=== PATIENT | female | born 1990 | race Caucasian/White ===

== ENCOUNTER → 2020-07-11 | Outpatient (CLI) | payer OTHER, SELFPAY ==
[2020-07-11 13:59] VITALS: BMI 27.1
[2020-07-17 09:59] LABS: HPV Reflexed? NOT INDICATED
== END | disposition home or self-care (01) ==
LOC: LABSPEC 16:16
PROVIDERS: Referring Provider Nurse Practitioner Women's Health; Visit Provider Nurse Practitioner Women's Health
DX: Z12.4 Encounter for screening for malignant neoplasm of cervix (principal)
CPT/HCPCS: 88175; G0145

== ENCOUNTER 2022-06-18 08:25 | Day surgery (SDC) | payer OTHER, BC, SELFPAY ==
--- NOTE | 2022-06-17 16:04 | HP.PCM_ITS ---
History and Physical Date of Admission: 06/18/22 [facility] [address] [place] [address] OFFICE VISIT Date of Service:? 05/10/22 MR#: [id number] Acct: [id number] Name:SHEEBA BLACKWOOD Rep #: [id number] : 1990 ? ? Provider: Dr. Tiffany Su, DO Age/Sex:? 31/F ? ? Location: [facility] [place] Status: Signed Intake Vital Signs ? 03/18/2212:24 05/10/2209:04 05/10/2209:07 Height 5 ft 4 in 5 ft 3 in 5 ft 4 in Weight: ? 135 lb 8 oz ? BMI ? 24.0 ? BP ? 118/70 ? 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) Allergies nitrofurantoin [From Macrobid] Allergy (Mild, Verified 05/10/22 09:03) Nausea Medications levonorgestrel 20 mcg/24 hours (7 yrs) 52 mg intrauterine device (Mirena) 1 insert intrauterine ONCE 10/09/17 [History Confirmed 05/10/22] sumatriptan succinate 100 mg tablet 100 mg PO ONCE PRN 07/11/20 [History Confirmed 05/10/22] amitriptyline 50 mg tablet 50 mg PO DAILY 05/10/22 [History Confirmed 05/10/22] topiramate 50 mg tablet (Topamax) 50 mg PO DAILY 05/10/22 [History Confirmed 05/10/22] Is last menstrual period known: Yes Last Menstral Period: 04/21/22 Nurse's Note: wants to discuss sterilization [facility] Medical History? COVID-19 Frequent headaches Family History? Mother Thyroid disorderSister Depression with anxiety Precancerous changes of the cervixGrandmother Arthritis DiabetesBrother HypertensionBrother HypoglycemiaFather Multiple sclerosis CVA (cerebral vascular accident) Social History? Smoking Status:? Never smoker alcohol intake:? current alcohol intake frequency: holidays/special occasions only substance use type:? does not use caffeine:? Yes what type of physical activity do you participate in:? none do you feel safe at home:? Yes additional social history:? [employer] at [employer] Patient works at [employer] Pregancy History ? ? ? 2 ? Elective abortions ? Hx Para ? ? ? 2 ? Spontaneous abortions ? Hx # Term Pregnancies ? Ectopic pregnancies ? Hx # Pregnancies ? Multiple births ? # of living children ? Past Pregnancies Del. Date Name GA/Weeks Outcome Route Bth Weight Infant Gen Labor Lgth Anesthesia Del Locatn Provider FOB 08/04/10 Conrad 41 live - full term 7lbs 6oz Male [address] David Garza 07/14/13 Brigette 40 live - full term 9lbs 2oz Female ? epidural WC ? Greg Delivery Date: 08/04/10? Last Updated by: Jordana Mix ? ? ? Chronic UTIs during Delivery Date: 07/14/13? Last Updated by: Jordana Mix ? ? ? Chronic UTIs, kidney infection. No issues during delivery HPI Encounter for routine gynecological examination Details: SHEEBA BO is a 31 year old who presents for annual exam. Last PAP: 2020 - normal History of abnormal PAP: no Last mammogram: n/a History of abnormal mammogram: n/a Colon cancer screening: n/a Other preventative health care screenings: up to date pt is requesting bilateral salpingectomy. she has a mirena in that is due to come out next year. she is asking to have it removed and replaced at the time of surgery to avoid office replacement due to complications in the past in the office. Female Reproductive History Last Menstral Period: 04/21/22 Cycle Length: 21-35 Bleeding Duration: 5 Questions: metorrhagia: No, sexually active: Yes, dyspareunia: No and PCB: No Menopausal Symptoms: No hot flashes, No night sweats, No weight change, No mood changes, No difficulty concentrating, No sleep problems and No change in libido ROS Const Constitutional: Reports as per HPI; Denies fatigue, increased appetite, poor appetite, night sweats, weight gain or weight loss Cardio Card: Denies chest pain Resp Resp: Denies cough or dyspnea GI GI: Reports as per HPI; Denies abdominal pain, bloating, constipation, nausea or vomiting : Reports as per HPI and other; Denies difficulty voiding, dysuria, hematuria, hot flashes, nipple discharge, pelvic pain, prolapse symptoms, urinary frequency, urinary incontinence, urinary urgency, vaginal discharge, vaginal dryness, vaginal odor or vaginal pruritus Skin Skin/Breast: Denies changing lesions, breast mass, breast pain, breast skin changes or nipple discharge Psych Psych: Denies anxiety, change in libido, depression or difficulty concentrating Exam Const General: cooperative, healthy appearing, comfortable, no acute distress, well developed and well groomed HENMI Head: normal to inspection and normocephalic Ears: hearing grossly normal bilaterally and external ears normal Nose: external nose normal Face and sinus: normal facial exam Neck Neck: normal visual inspection, full ROM and no lymphadenopathy Thyroid: thyroid normal Chest Chest palpation & inspection: normal inspection of the chest Breast inspection: normal inspection of the breasts and normal inspection of the axillae Breast palpation: normal palpation of the breasts, normal palpation of the axillae and no axillary lymphadenopathy Resp Effort & Inspection: normal respiratory effort GI Inspection: normal to inspection and non-distended Palpation: soft, no hepatosplenomegaly and no guarding General: bladder normal to palpation External Female Exam: normal external appearance, normal appearance of the urethra and no lesions Urethra: normal appearance of the urethra and normal palpation Speculum Exam - Vagina: normal appearance of the vagina and normal vaginal discharge Speculum Exam - Cervix: normal appearance of the cervix, no cervical discharge, no lesions and nontender Bimanual Exam- Vagina & Uterus: normal bimanual exam, uterine size normal, bladder normal to palpation, No tender, uterine mobility normal, consistency normal, non-tender and no cervical motion tenderness Bimanual Exam- Adnexa, other: normal adnexae, no masses and non-tender Skin General: no rashes or lesions noted Neuro General: patient alert, moves all extremities and no focal motor deficits Extrem General: normal to inspection and no pedal edema Psych Appearance: grossly normal Mental Status: mental status grossly normal Affect: normal affect Speech and Movement: speech and movement normal Attitude: cooperative Coding Level of Care Code Off vis,est,prev 18-39yrs Diagnoses Encounter for routine gynecological examination? Z01.419 Contraceptive management? Z30.431 ? ? ? Contraceptive encounter type: IUD management ? ? ? IUD management: routine checking Assessment and Plan Assessment and Plan (1) Encounter for routine gynecological examination: ?Plan: Cervical cancer screening: pap up to date Breast cancer screening: plan to start at age 40 STD prevention and contraceptive options including their risks, benefits, and alternatives were reviewed with the patient and she chooses: mirena + tubal ligation? Encouraged maintenance of a healthy weight and active lifestyle and handout given. Calcium/vitamin D recommendations provided. Annual exam handout including recommendations for good health guidelines and basic screening information given.? Problem list up to date, see problem list details for any additional plan information. follow up in one year for annual health maintenance exam or sooner if needed. (2) Contraceptive management: ?Status:?Acute ?Qualifiers: ?Contraceptive encounter type:?IUD management??IUD management:?routine checking? Qualified Code(s):?Z30.431 - Encounter for routine checking of intrauterine contraceptive device ?Plan: After discussing the patient's diagnosis and treatment plan options, patient wishes to proceed with surgical management. plan for laparoscopic bilateral salpingectomy, remval and replacement of IUD. ? I have discussed with the patient the risks, benefits, and alternatives of the procedure which include but are not limited to risks of anesthesia, bleeding, infection, possible damage to bowel, bladder, or surrounding vasculature which could lead to additional surgery to evaluate any complications.? Patient agrees to procedure and wishes to proceed.? ACOG/uptodate references given for additional information regarding procedure.? UPDATE- I have seen the patient and performed any clinically relevant updates to the history and physical exam. Tiffany Su, DO
[2022-06-18 08:56] VITALS: BP 104/76; PULSE 95; RESP 16; TEMP 37.1; O2SAT 100; BMI 23.8
[2022-06-18] MEDS: Lactated Ringers 1,000 ML 125 ML IV ×2 (09:15→10:30)
[2022-06-18 09:26] LABS: Hematocrit 39.3 % (37-47); Hemoglobin 12.9 g/dL (12.0-15.0); Mean Corp Hgb Conc 32.8 g/dL (32-36); Mean Corpuscular Hgb 30.1 pg (27.0-32.0); Mean Corpuscular Volume 91.8 fL (81-99); Mean Platelet Vol. 10.9 fl (6.2-12.0); Platelet Count 298 K/mm3 (150-450); RBC Distribution Width CV 12.6 % (11.6-14.6); RBC Distribution Width SD 42.2 fl (35.1-43.9); Red Blood Count 4.28 M/mm3 (4.2-5.4); White Blood Count 5.7 K/mm3 (4.4-11.0)
[2022-06-18 09:32] LABS: Internal QC Validated? YES +Cl - CLEAR BKGD; Pregnancy, Urine Negative Negative
--- NOTE | 2022-06-18 10:00 | FALS_PTH ---
PATIENT: SHEEBA BO LOC: [facility] [place] U#:[id number] AGE/SX: 31/F ROOM: RE06/18/[address]: Dr. Tiffany Su DO : 1990 BED: DIS: 06/18/2022 SPEC #: [id number] RECD: 06/18/22 11:53 STATUS: NORM MARINANapoleon #: [id number] JAS: 06/18/22 10:[address]: Tiffany Su DEPT: SURGICAL PATHOLOGY RECD BY: Idalmis Manzano ENTERED: 06/18/22 12:35 SP TYPE: FALL TUBES OTHR DR: Duyne Primary Care Phys Tissues: A - Fallopian tube B - OVARIAN CYST C - Fallopian tube Procedures: Surgery Specimen Level II Surgery Specimen Level IV HEADER OPERATION: Laparoscopic salpingectomy, removal and reinsertion of Mirena PRE-OP DIAGNOSIS: CRT exam TISSUE SUBMITTED: A ? Left fallopian tube, B ? Left ovarian nodule, C ? Right fallopian tube MICROSCOPIC DIAGNOSIS A. Left fallopian tube, salpingectomy: Fallopian tube, no pathologic diagnosis. B. Left ovarian nodule, biopsy: Fragments of fibroadipose tissue with focal area of fat necrosis and reactive changes. Negative for malignancy. C. Right fallopian tube, salpingectomy: Fallopian tube, no pathologic diagnosis. SJ:rg 06/19/2022 COMMENT Case has been reviewed in consultation with Dr. Paniagua who concurs with the above diagnosis. IDC:AM MICROSCOPIC DESCRIPTION Slides are reviewed. GROSS DESCRIPTION A - Received in fixative is one container labeled with the patient's name and designated left fallopian tube. The specimen consists of a fallopian tube in two pieces measuring 5.5 cm in length and up to 0.5 cm in diameter. The fimbrial end is identified. Sections reveal unremarkable cut surfaces. Signal System Testing Maintainer sections are submitted in one cassette. B - Received in fixative is one container labeled with the patient's name and designated left-sided ovarian nodule. The specimen consists of multiple pieces of maurice-light yellow soft tissue that in aggregate measure 1.5 x 1 x 0.3 cm. The specimen is totally submitted in one cassette. C - Received in fixative is one container labeled with the patient's name and designated right fallopian tube. The specimen consists of a fallopian tube including fimbrial end measuring 6.5 cm in length and 0.5 cm in diameter. Sections reveal unremarkable cut surfaces. Signal System Testing Maintainer sections are submitted in one cassette. / SJ:rg 06/18/2022 TC:5 CPT: 98103, 88783 x2
[2022-06-18] MEDS: Sugammadex Sodium 200 MG/2 ML VIAL IV (10:39)
--- NOTE | 2022-06-18 10:42 | OP.PCM_ITS ---
Operative Report Date of Procedure: 06/18/22 preoperative diagnosis: desires permanent sterilization, menorrhagia postoperative diagnosis: desires permanent sterilization, menorrhagia surgery: laparoscopic bilateral salpingectomy, placement of Mirena IUD surgeon: Dr. Tiffany Su DO Corporate Representative: trevor Serrano EBL: 5 cc Anesthesia: general endotracheal intubation Complications: none Details of the procedure: Patient was taken in the operating room and was placed under general anesthesia was prepped and draped in normal sterile fashion in the dorsal lithotomy position.? Bladder was drained of clear urine and SCDs were on preoperatively.The mirena IUD was grasped and removed. ? Uterus was sounded and a uterine manipulator was placed after dilating. ? Attention was then paid to the abdominal portion of the procedure and the umbilicus was elevated and injected with Marcaine. A 5mm trocar was inserted into the abdomen under direct visualization using the laparoscope. The abdomen was insufflated with CO2 gas and a left lower quadrant 5 mm port and a mini grasper were placed? suprapubically under direct visualization.? Uterus was well visualized and bilateral fallopian tubes identified and bilateral tubes were elevated and transecting across the mesosalpinx and the attachment to the uterine corpus bilaterally the tubes were removed without complication.? Excellent hemostasis was noted.? Fallopian tubes were removed through the lower port sites without complication.? Liver and upper abdomen were visualized notably within normal limits and no other gross abnormalities were seen in the abdomen.? All instruments removed from the abdomen after gas was desufflated.? Port sites were closed with 3-0 Monocryl Steri's and op sites were applied. Attention was turned back to the vagina. A weighted speculum was placed in the vagina and the manipulator was removed. The uterus was sounded to 8 cm. The mirena IUD was i nserted in the usual sterile fashion up to the fundus. The strings were trimmed 3 cm from the cervix and the single toothed tenaculum was removed. All instruments removed from the vagina and patient was awoken and taken recovery in stable condition. Multi Select Codes Urinary/Genital Urinary/Genital CPT Codes: 91086 Laproscopic BS/O and Other Procedure See Report (removal and re-insertion of mirena intrauterine device )
--- NOTE | 2022-06-18 10:44 | DCINST_ITS ---
Discharge Instructions Diet Discharge Diet: No restrictions Activity Discharge Activity: Return to Normal Activity, May Not Drive (for two weeks or while taking narcotic pain medications.), May Shower and May Take a Tub Bath (in 7 days) May resume sexual activity in: 1 week Weight Bearing Status: Full weight bearing Dressing / Incision Call your doctor if you observe: Using more than 1 pad per hour, Shortness of breath, Chest pain and Uncontrolled pain Suture Line Care: Avoid Pulling/Pushing and Avoid Pinching/Bending Remove Dressing in: 1 week (if present) Cleanse incision/area with: Soap & Water and Keep Dressing Clean & Dry Follow Up Care Please Follow Up With: Tiffany Su DO When: Call to make an appointment with your doctor for a follow up incision check in 1-2 weeks. Test Results: Test results from this visit will be discussed in further detail at your follow- up appointment, if applicable. Discharge Plan Admission Primary Reason for Your Visit: laparoscopically bilateral salpingectomy, removal and insertion of IUD Attending Provider: Tiffany Su Primary Care Provider: Care PhysicianDuyen Primary Discharge Orders/Prescriptions Prescriptions: New ibuprofen 800 mg tablet 800 mg PO Q8H PRN (Reason: pain) 7 Days Qty: 30 0RF oxycodone-acetaminophen [Percocet] 5-325 mg tablet 1 tab PO Q4H PRN (Reason: pain) 7 Days Qty: 14 0RF Continued levonorgestrel [Mirena] 20 mcg/24 hr (5 years) intrauterine device 1 insert Intrauterine ONCE sumatriptan succinate 100 mg tablet 100 mg PO ONCE PRN (Reason: MIGRAINES) amitriptyline 50 mg tablet 50 mg PO DAILY topiramate [Topamax] 50 mg tablet 50 mg PO DAILY Referrals / Follow Up: Care Physician,No Primary [Primary Care Provider] - Disposition Disposition (needs filled in before D/C Order can be placed): Home, Self Care
[2022-06-18 10:48] VITALS: BP 104/76; BP 115/73; PULSE 104; RESP 16; TEMP 36.2; O2SAT 100
[2022-06-18 11:00] VITALS: BP 104/76; BP 77/64; PULSE 87; RESP 16; O2SAT 100
[2022-06-18 11:15] VITALS: BP 104/76; BP 110/75; PULSE 81; RESP 16; O2SAT 100
[2022-06-18 11:18] VITALS: BP 104/76; BP 109/79; PULSE 82; RESP 16; TEMP 35.8; O2SAT 100
[2022-06-18] MEDS: Acetaminophen 500 MG Tablet 1000 MG PO (11:30)
[2022-06-18 11:46] VITALS: BP 104/76
== END 2022-06-18 12:24 | disposition home or self-care (01) ==
LOC: SDC 08:29 → AC 08:32
PROVIDERS: Referring Provider Obstetrics & Gynecology; Visit Provider Obstetrics & Gynecology
PROC: (CPT 58661; principal; 2022-06-18 09:45)
DX: N92.0 Excessive and frequent menstruation with regular cycle (principal); Z30.433 Encounter for removal and reinsertion of intrauterine contraceptive device; Z30.2 Encounter for sterilization; Z86.16 Personal history of COVID-19; G43.709 Chronic migraine without aura, not intractable, without status migrainosus; Z79.899 Other long term (current) drug therapy
CPT/HCPCS: 58661; 58300; 00840; 58301; 81025; 85027; 88302; 88305; J7120; J2405

== ENCOUNTER → 2024-05-27 | Outpatient (CLI) | payer OTHER, BC, SELFPAY ==
[2024-06-01 10:09] LABS: HPV APTIMA, High Risk Negative (Negative)
== END | disposition home or self-care (01) ==
LOC: LABSPEC 15:47
PROVIDERS: Referring Provider Obstetrics & Gynecology; Visit Provider Obstetrics & Gynecology
DX: Z12.4 Encounter for screening for malignant neoplasm of cervix (principal)
CPT/HCPCS: 87624; 88175; G0145